=== PATIENT | female | born 1955 | race Caucasian/White ===

== ENCOUNTER → 2016-05-30 | Outpatient (CLI) | payer BC ==
--- NOTE | 2016-06-02 10:34 | MM ---
Reason for exam: additional evaluation requested from abnormal screening. Last mammogram was performed less than 1 month ago. History: Patient is postmenopausal and is nulliparous. Family history of breast cancer in mother at age 60. Benign ultrasound-guided core biopsy of the right breast, May 03, 2001. Benign excisional biopsy of the right breast, November 17, 2000. Took hormonal contraceptives for 15 years beginning at age 19. Physical Findings: Nurse did not find any significant physical abnormalities on exam. MG Work Up Mamm w CAD RT LM, CC with magnification, and LM with magnification view(s) were taken of the right breast. Prior study comparison: May 20, 2016, bilateral MG screening mammo w CAD. May 15, 2015, bilateral MG screening mammo w CAD. Finding #1: There is a 6 mm irregular mass in the 12 o'clock position of the right breast. Finding #2: There are segmental calcifications in the right breast. Density with calcifications. These results were verbally communicated with the patient and result sheet given to the patient on 05/30/16. ASSESSMENT: Suspicious, BI-RAD 4 RECOMMENDATION: Surgical consultation and stereotactic core biopsy of the right breast. Called Dr. Bustamante with mammographic findings and has scheduled an appointment for the patient for 06/06/16 at 10:[address] Stahl. PRELIMINARY REPORT CALLED AND FAXED TO DR. STAHL ON 06/02/16 AT 300/TP.
== END | disposition home or self-care (01) ==
LOC: RADMAMWWP 13:38
PROVIDERS: ATTEND Obstetrics & Gynecology
DX: R92.8 Other abnormal and inconclusive findings on diagnostic imaging of breast (principal)

== ENCOUNTER → 2016-06-26 | Day surgery (SDC) | payer BC ==
[~2016-06-26] MED LIST: BACITRACIN OINT 1 EACH PACKET TOPICAL ONE; LIDOCAINE 1% INJ 10MG/ML (20 ML MDV) ONE; SODIUM BICARB 4% 5 ML VIAL (0.48 MEQ/ML) ONE
--- NOTE | 2016-06-26 08:55 | PCN ---
DATE OF PROCEDURE: Patient is a 61-year-old white female who presents with a mammographic abnormality in the right breast. The patient was taken to the stereotactic unit where the area of concern was localized. The skin was cleaned and anesthetized using 1% lidocaine. Needle was then driven to the correct coordinates. Multiple core biopsies were obtained using the stereotactic device. Radiograph of the specimen revealed that the area of concern had been sampled. A marking clip was then left behind. Patient tolerated the procedure in stable condition. Please note: Specimen was sent to Pathology.
--- NOTE | 2016-06-26 10:16 | MM ---
EXAMINATION TYPE: MG stereo VAD BX RT DATE OF EXAM: 06/26/2016 8:54 AM COMPARISON: 05/20/2016 and 05/30/2016 CLINICAL HISTORY: 60-year-old female referred for stereotactic core needle biopsy for microcalcifications. TECHNIQUE: Stereotactic guided core biopsy of the 1:00 right breast. FINDINGS: The procedure of stereotactic guided core biopsy was explained to the patient. Benefits, alternatives, and risks were discussed. An informed consent was then obtained. [facility] was [facility]. Shortness pathway was CC from above approach. I performed the localization, then surgeon, Dr. Tylor Duran performed the remainder of the procedure. An 8 gauge vacuum assisted mammotome biopsy gun was used to obtain multiple core samples. The patient tolerated the procedure well without any immediate complication. The patient was kept in the radiology department for short stay after the procedure and then discharged home in stable condition. Targeted calcifications are identified in specimen mammogram. Post biopsy mammogram shows the clip to appear in satisfactory position relative to the targeted area of calcifications with a single residual calcification remaining at the site of biopsy. IMPRESSION: SUCCESSFUL, UNCOMPLICATED STEREOTACTIC GUIDED CORE BIOPSY OF THE 1:00 RIGHT BREAST MICROCALCIFICATIONS; FULL PATHOLOGY RESULTS TO FOLLOW. 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 SEE SURGICAL PATHOLOGY CANCER CASE SUMMARY AND COMMENT. Recommendation Surgical consult of the right breast. LELA
== END ==
LOC: RADMAMWWP 07:13
PROVIDERS: ATTEND Surgery
DX: C50.911 Malignant neoplasm of unspecified site of right female breast (principal); D05.11 Intraductal carcinoma in situ of right breast; N64.89 Other specified disorders of breast; R92.8 Other abnormal and inconclusive findings on diagnostic imaging of breast; Z88.2 Allergy status to sulfonamides
CPT/HCPCS: 88305; 88342; 88341; 19081; A4648; J2001

== ENCOUNTER → 2016-06-27 | Outpatient (CLI) | payer BC ==
[2016-06-27 08:22] LABS: ALT 44 U/L (9-52); AST 29 U/L (14-36); Alkaline Phosphatase 92 U/L (38-126); Anion Gap 10 mmol/L; Blood Urea Nitrogen 16 mg/dL (7-17); Calcium 10.9 mg/dL (8.4-10.2); Carbon Dioxide 30 mmol/L (22-30); Chloride 104 mmol/L (98-107); Cholesterol 181 mg/dL (<200); Glucose 106 mg/dL (74-99); HDL Cholesterol 59 mg/dL (40-60); Non-African American GFR(MDRD) >60 (>60 ml/min/1.73 sqM); Potassium 4.2 mmol/L (3.5-5.1); Sodium 144 mmol/L (137-145); Total Bilirubin 0.7 mg/dL (0.2-1.3); Total Protein 7.3 g/dL (6.3-8.2); Triglycerides 202 mg/dL (<150)
== END | disposition home or self-care (01) ==
LOC: LABWHC1 07:40
PROVIDERS: ATTEND Internal Medicine Interventional Cardiology
DX: E78.2 Mixed hyperlipidemia (principal)
CPT/HCPCS: 36415; 80053; 80061

== ENCOUNTER 2016-07-22 07:53 | Day surgery (SDC) | payer BC ==
[2016-07-18 11:12] VITALS: BMI 30.9
[~2016-07-22 07:53] MED LIST changes: +ALPRAZolam 0.25 MG TAB PO PRN; -BACITRACIN OINT 1 EACH PACKET TOPICAL ONE; +DEXAMETHASONE SOD PHOSPHATE 10 MG/ML 1 ML VIAL IV ONE; +HEPARIN SODIUM,PORCINE 5,000 UNIT/ML 1 ML VIAL SQ ONE; +HYDROmorphone 1 MG/ML 1 ML SYRINGE IVP PRN; +LACTATED RINGERS 1,000 ML IV SCH; +LIDOCAINE 1% 20 ML VIAL (10MG/ML) FOR IV START INTRADERMA PRN; -LIDOCAINE 1% INJ 10MG/ML (20 ML MDV) ONE; +MIDAZOLAM 2 MG/2 ML VIAL IV PRN; +ONDANSETRON 4 MG/2 ML VIAL IVP ONE; +Pre Op ABX Message 1 EACH MISC MISCELLANE ONE; +SCOPOLAMINE 1.5MG/72HR PATCH TRANSDERM ONE; -SODIUM BICARB 4% 5 ML VIAL (0.48 MEQ/ML) ONE
[2016-07-22] MEDS ORDERED: SODIUM BICARB 4% 5 ML VIAL (0.48 MEQ/ML) MISCELLANE ONE (09:32)
[2016-07-22] MEDS ORDERED: LIDOCAINE 1% INJ 10MG/ML (20 ML MDV) SQ ONE (09:32)
--- NOTE | 2016-07-22 10:14 | NM ---
EXAMINATION TYPE: NM sentinel node injection DATE OF EXAM: 07/22/2016 10:07 AM COMPARISON: Mammogram two June 2016 HISTORY: Right breast cancer TECHNIQUE AND FINDINGS: The procedure of sentinel lymph node injection was explained to the patient. The benefits, alternatives, and risks were discussed. An informed consent was then obtained. Overlying skin is cleaned with sterile alcohol. Lidocaine buffered with bicarbonate was used as anes thetic into the skin and subcutaneous tissue surrounding the nipple. Following this, 550 uCi Tc 99m Filtered Sulfur Colloid was injected into 4 equivalent doses at 12, 3, 6, and 9:00 position surroundi ng the right nipple intradermally. The injection sites were massaged by nuclear weapons custodian for 10 minutes after injection. T he patient tolerated the procedure well without any immediate complication. The patient was kept in the radiology department for short stay after the procedure and then taken to surgery for surgical pr ocedure what is presumed intraoperative gamma probe will be used for sentinel lymph node detection. IMPRESSION: Right breast radiotracer injection for sentinel node localization as above.
[2016-07-22] MEDS ORDERED: METHYLENE BLUE 50 MG/10 ML AMPUL MISCELLANE ONE (12:42)
[2016-07-22] MEDS ORDERED: LIDOCAINE 1% INJ 10MG/ML (20 ML MDV) ONE (12:53)
[2016-07-22] MEDS ORDERED: SUCCINYLCHOLINE CHLORIDE VIAL 200 MG/10 ML VIAL IV ONE (12:53)
[2016-07-22] MEDS ORDERED: ePHEDrine 50 MG/ML 1 ML AMP ONE (12:53)
[2016-07-22] MEDS ORDERED: MIDAZOLAM 2 MG/2 ML VIAL ONE (12:53)
[2016-07-22] MEDS ORDERED: PROPOFOL 10 MG/ML 20 ML VIAL IV ONE (12:53)
[2016-07-22] MEDS ORDERED: fentaNYL (PF) 50 MCG/ML 2 ML AMP ONE (12:53)
[2016-07-22] MEDS ORDERED: HEPARIN SODIUM,PORCINE 5,000 UNIT/ML 1 ML VIAL SQ ONE (12:55)
[2016-07-22] MEDS ORDERED: SODIUM CHLORIDE 0.9% 50 ML with ceFAZolin 2,000 MG IV ONE ×2 (13:17)
[2016-07-22] MEDS ORDERED: METHYLENE BLUE 50 MG/10 ML AMPUL ONE (13:33)
[2016-07-22] MEDS ORDERED: LACTATED RINGERS 1,000 ML IV ONE (13:38)
--- NOTE | 2016-07-22 15:18 | P.OP ---
Date of Procedure: 07/22/16 Preoperative Diagnosis: Right breast cancer Postoperative Diagnosis: Same Procedure(s) Performed: Lymphatic mapping with methylene blue, left breast lumpectomy insertion of Emely spacer, sentinel node biopsy Anesthesia: NEHEMIAS Surgeon: Allison Stahl Estimated Blood Loss (ml): 10 IV fluids (ml): 800 Pathology: other (Right breast tissue, sentinel lymph node 3) Condition: stable Disposition: PACU Indications for Procedure: core biopsy of the right breast positive for invasive cancer Operative Findings: Mammographic abnormality right breast, positive biopsy for cancer, sentinel lymph node 3 in the right axilla Description of Procedure: Patient is a 61-year-old white female who is status post core biopsy of the left concern noted radiographically in the right breast. Pathology positive for invasive carcinoma. Patient is chosen to undergo lumpectomy with sentinel node biopsy. Patient was taken to the operating room and following induction of general anesthesia the right breast was prepped in the periareolar area using alcohol. 5 mL of half-strength methylene blue were injected in the periareolar region. Following this the breast was massaged. The breast and axilla were then prepped and draped in sterile fashion. The area of the lumpectomy was addressed initially. An incision was made down to the hook of the needle and the surrounding tissue was excised. The specimen was interrogated using the margin probe and the lateral margin was positive. Therefore additional tissue was obtained from the lateral margin. Additionally the superficial was obtained as well as anteriorly including a specimen of skin and posterior to the pectoralis major muscle. Superior and inferior margins appeared to be well away from the lesion. The specimen was radiographed revealing the area of concern were contained within the specimen. The Emely device was placed into the cavity after the cavity had been reduced somewhat using a plastic technique. The sizing the cavity was approximately 8 x 4 cm. The balloon was inflated to 40 mL with saline. The superficial tissues were closed over this and the skin was closed using a 4-0 Monocryl followed by a a nylon suture. Following this instruments and gloves were changed and the area of the axilla was approached. Using the margin probe an area of increased activity was identified and an incision was made. This was carried down to the axillary contents and 3 radioactive blue lymph nodes were identified. The count on the first noted at 10 seconds was thoroughly 1994, second was 6061 and a common the third 37,000. Return 69. All of these were blue nodes as well. The background count at 10 seconds was then 14. The lymph nodes were sent for frozen section All instrument and sponge counts were correct at the end of the case. The patient tolerated the procedure in stable condition.
--- NOTE | 2016-07-22 15:20 | P.DS ---
Providers Attending physician: Allison Stahl Primary care physician: Stated None Plan - Discharge Summary New Discharge Prescriptions: Cephalexin [Keflex] 250 mg PO Q8HR #30 capsule HYDROcodone/APAP 5-325MG [Beals 5] 1 - 2 each PO Q4H PRN #20 tab PRN Reason: Pain Discharge Medication List Aspirin [Adult Low Dose Aspirin EC] 81 mg PO DAILY 07/18/16 [History] Latanoprost Ophth [Xalatan 0.005%] 1 drops BOTH EYES HS 07/18/16 [History] Losartan [Cozaar] 50 mg PO DAILY 07/18/16 [History] Vytorin(Dose Unknown) 1 tab PO HS 07/18/16 [History] Cephalexin [Keflex] 250 mg PO Q8HR #30 capsule 07/22/16 [Rx] HYDROcodone/APAP 5-325MG [Beals 5] 1 - 2 each PO Q4H PRN #20 tab 07/22/16 [Rx] Follow up Appointment(s)/Referral(s): Allison Stahl MD [STAFF PHYSICIAN] - 1 Week Activity/Diet/Wound Care/Special Instructions: Patient may shower after 48 hours Discharge Disposition: HOME SELF-CARE
[2016-07-22 15:29] VITALS: RESP 18; TEMP 97.6
--- NOTE | 2016-07-22 16:10 | MM ---
EXAMINATION TYPE: MG pre op needle loc RT, MG surgical specimen RT DATE OF EXAM: 07/22/2016 10:20 AM COMPARISON: NONE CLINICAL HISTORY: Breast cancer right breast TECHNIQUE: Needle localization with wire placement and surgical excision of area of concern in the right breast. FINDINGS: The procedure of needle localization with wire placement and than surgical excision was explained to the patient. Benefits, alternatives, and risks were discussed. An informed consent was then obtained. The shortest pathway for procedure was chosen. The overlying skin was prepped and draped in usual sterile fashion. Lidocaine buffered with bicarbonate was used as anesthetic into the skin and subcutaneous tissue up to the level of area of concern. 20-gauge needle was advanced using mammographic guidance. Subsequent 90 degrees mammogram show the needle to be in satisfactory position relative to the targeted area. At this point, wire was placed and the needle was withdrawn. The wire was fixed to patient's skin. Images were marked for surgeon. The patient tolerated the procedure well without any immediate complication. The patient was kept in the radiology department for short stay after the procedure and then taken to surgery for surgical excision. Targeted clip and wire are identified in specimen mammogram. The patient was kept in hospital for short stay after the procedure and then discharged home in stable condition. IMPRESSION: Successful, uncomplicated needle localization with wire placement and surgical excision of clip in the right breast, full pathology results to follow. Pathology Results: Malignant A. LYMPH NODE, SENTINEL #1, BIOPSY: LYMPH NODE NEGATIVE FOR METASTASIS. CYTOKERATIN 7 AND ENRIQUE IMMUNOHISTOCHEMICAL STAINS ARE CONFIRMATORY (CONTROLS APPROPRIATE). B. LYMPH NODE, SENTINEL #2, BIOPSY: LYMPH NODE NEGATIVE FOR METASTASIS. CYTOKERATIN 7 AND ENRIQUE IMMUNOHISTOCHEMICAL STAINS ARE CONFIRMATORY (CONTROLS APPROPRIATE). C. LYMPH NODE, SENTINEL #3, BIOPSY: LYMPH NODE NEGATIVE FOR METASTASIS. CYTOKERATIN 7 AND ENRIQUE IMMUNOHISTOCHEMICAL STAINS ARE CONFIRMATORY (CONTROLS APPROPRIATE). D-H. PENDING FIXATION. ADDENDUM REPORT D. BREAST, RIGHT, LUMPECTOMY: INVASIVE DUCTAL CARCINOMA WITH FOCAL PAPILLARY DIFFERENTIATION. MARGINS NEGATIVE FOR MALIGNANCY. SEE SURGICAL PATHOLOGY CANCER CASE SUMMARY AND COMMENT. E. BREAST, RIGHT, EXTERNAL SURFACE LATERAL, EXCISION: BENIGN BREAST WITH FIBROCYSTIC CHANGES INCLUDING FOCAL FIBROADENOMATOID HYPERPLASIA. F. BREAST, RIGHT, DEEP SURFACE OF DEEP POSTERIOR, EXCISION: BENIGN FIBROADIPOSE TISSUE. G. BREAST, RIGHT, EXTERNAL SURFACE OF MEDIAL, EXCISION: FIBROCYSTIC CHANGES, DUCT ECTASIA AND FOCAL OSSEOUS METAPLASIA. FOCAL ATYPICAL DUCTAL HYPERPLASIA. H. BREAST, RIGHT, NEW ANTERIOR MARGIN, EXCISION: BENIGN SKIN AND UNDERLYING BREAST TISSUE WITH FIBROCYSTIC CHANGES AND DUCT ECTASIA. Recommendation Surgical consult of the right breast. LELA
[2016-07-22] MEDS ORDERED: HYDROcodone/APAP 5-325MG 1 EACH TAB PO ONE (16:50)
[2016-07-22 17:48] VITALS: BP 133/73; PULSE 77
== END 2016-07-22 17:49 | disposition home or self-care (01) ==
LOC: OR 07:53
PROVIDERS: ATTEND Surgery
DX: C50.911 Malignant neoplasm of unspecified site of right female breast (principal); I10 Essential (primary) hypertension; E78.5 Hyperlipidemia, unspecified; Z79.1 Long term (current) use of non-steroidal anti-inflammatories (NSAID); Z79.82 Long term (current) use of aspirin; Z79.899 Other long term (current) drug therapy; Z88.2 Allergy status to sulfonamides
CPT/HCPCS: 19301; 38500; 88342; 88331; 88332; 88307; 88341; 76098; 19281; 38792; C1713; A9541; J2250; J0330; J2001; J3010; J0690; J2704

== ENCOUNTER → 2016-10-30 | Outpatient (CLI) | payer BC | END | disposition home or self-care (01) | LOC: LABWHC1 08:01 | PROVIDERS: ATTEND Internal Medicine Endocrinology, Diabetes & Metabolism | DX: C50.919 Malignant neoplasm of unspecified site of unspecified female breast (principal); E21.0 Primary hyperparathyroidism; E55.9 Vitamin D deficiency, unspecified; E83.52 Hypercalcemia | CPT/HCPCS: 36415; 83519 ==

== ENCOUNTER → 2017-02-02 | Outpatient (CLI) | payer BC ==
--- NOTE | 2017-02-02 11:58 | MM ---
Reason for exam: additional evaluation requested from prior study. Last mammogram was performed 8 months ago. History: Patient is postmenopausal, has history of breast cancer at age 61, and is nulliparous. Family history of breast cancer in mother at age 60. Malignant MG pre op needle loc RT of the right breast, July 22, 2016. Malignant MG stereo VAD BX RT of the right breast, June 26, 2016. Benign ultrasound-guided core biopsy of the right breast, May 03, 2001. Benign excisional biopsy of the right breast, November 17, 2000. Took hormonal contraceptives for 15 years beginning at age 19. Physical Findings: Nurse did not find any significant physical abnormalities on exam. MG Diagnostic Mammo w CAD JACIKE Bilateral CC and MLO view(s) were taken. Prior study comparison: May 30, 2016, right breast MG work up mamm w CAD RT. May 20, 2016, bilateral MG screening mammo w CAD. May 15, 2015, bilateral MG screening mammo w CAD. The breast tissue is heterogeneously dense. This may lower the sensitivity of mammography. No suspicious abnormality. Post therapy changes on the right breast. These results were verbally communicated with the patient and result sheet given to the patient on 02/02/17. ASSESSMENT: Benign, BI-RAD 2 RECOMMENDATION: Follow-up diagnostic mammogram of both breasts in 1 year.
== END | disposition home or self-care (01) ==
LOC: RADMAMWWP 10:02
PROVIDERS: ATTEND Radiology Radiation Oncology
DX: Z08 Encounter for follow-up examination after completed treatment for malignant neoplasm (principal); Z85.3 Personal history of malignant neoplasm of breast; Z17.0 Estrogen receptor positive status [ER+]

== ENCOUNTER → 2017-06-30 | Outpatient (CLI) | payer BC ==
[2017-06-30 11:19] LABS: ALT 35 U/L (9-52); AST 22 U/L (14-36); Albumin 4.2 g/dL (3.5-5.0); Alkaline Phosphatase 98 U/L (38-126); Anion Gap 10 mmol/L; Blood Urea Nitrogen 16 mg/dL (7-17); Calcium 10.8 mg/dL (8.4-10.2); Carbon Dioxide 29 mmol/L (22-30); Chloride 105 mmol/L (98-107); Cholesterol 144 mg/dL (<200); Glucose 98 mg/dL (74-99); HDL Cholesterol 52 mg/dL (40-60); LDL Cholesterol,Calculated 66 mg/dL (0-99); Potassium 4.1 mmol/L (3.5-5.1); Sodium 144 mmol/L (137-145); Total Bilirubin 0.6 mg/dL (0.2-1.3); Total Protein 6.8 g/dL (6.3-8.2); Triglycerides 128 mg/dL (<150)
== END | disposition home or self-care (01) ==
LOC: LABWHC1 08:19
PROVIDERS: ATTEND Internal Medicine Interventional Cardiology
DX: E78.2 Mixed hyperlipidemia (principal)
CPT/HCPCS: 36415; 80053; 80061

== ENCOUNTER → 2017-11-05 | Outpatient (CLI) | payer BC ==
--- NOTE | 2017-11-05 13:27 | BD ---
EXAMINATION TYPE: Axial Bone Density DATE OF EXAM: 11/05/2017 COMPARISON: 10.19.2015 CLINICAL HISTORY: 62 YR OLD FEMALE.....ICD-10 CODE: E21.1 SECONDARY OSTEOPOROSIS, HYPERPARATHYROIDI SM, Height: 63 Weight: 182 FRAX RISK QUESTIONS: Secondary Osteoporosis: YES 2. Hyperthyroidism: YES RISK FACTORS HISTORY OF: Active: YES Diet low in dairy products/other sources of calcium: NO Postmenopausal woman: YES, HYST AT 48, Hyperparathyroidism: YES MEDICATIONS: Additional Medications: ARIMIDEX, BP MEDS, VIT D, HX OF RADIATION, STATIN FOR CHOLESTEROL, Additional History: HX OF RT BREAST CANCER, 2017, HYPERTENSION, CHOLESTEROL, HYPERCALCEMIA, EXAM MEASUREMENTS: Bone mineral densitometry was performed using the [employer]. Bone mineral density as measured about the Lumbar spine is: ----- L1-L4(G/cm2): 1.233 T Score Values are as follows: ----- L1: -0.9 ----- L2: -1.4 ----- L3: 1.3 ----- L4: 2.3 ----- L1-L4: 0.4 Bone mineral density has: Increased 5.8% since study of: 10.19.2015 Bone mineral density about the R hip (g/cm2): 0.869 Bone mineral density about the L hip (g/cm2): 0.947 T Score values are as follows: -----R Neck: -1.2 -----L Neck: -1.1 -----R Total: -1.1 -----L Total: -0.5 Bone mineral density has: Decreased -7.4% since study of: 10.19.2015 Bone mineral density about the L Wrist (g/cm2): 0.655 T Score values are as follows: -----Dist. R+U: -0.3 -----Prox. R+U: 0.2 -----Radius total: 0.5 Bone mineral density FIRST TIME FOREARM HAS BEEN SCANNED.....BASELINE FOR FOREARM FRAX%s: THERE IS A 7.7% CHANCE OF A MAJOR OSTEOPOROTIC FX AND A 0.6% FOR HIP.....PROBABILITY OF FX IN 10 YRS TIME. IMPRESSION: Osteopenia (T Score between -2.5 and -1) at the femoral neck level in both hips. Bone density felt fa lsely elevated in lumbar spine due to reactive sclerosis as there is underlying scoliosis present. There is slightly increased risk of fracture and the patient may be considered for treatment. Re-Screen 2-5 years. NOTE: T-SCORE=SD OF THE YOUNG ADULT MEAN.
== END | disposition home or self-care (01) ==
LOC: RADBDWWP 09:20
PROVIDERS: ATTEND Internal Medicine Endocrinology, Diabetes & Metabolism
DX: Z79.811 Long term (current) use of aromatase inhibitors (principal); M85.851 Other specified disorders of bone density and structure, right thigh; M85.852 Other specified disorders of bone density and structure, left thigh; M85.88 Other specified disorders of bone density and structure, other site; M41.9 Scoliosis, unspecified; G95.89 Other specified diseases of spinal cord; E55.9 Vitamin D deficiency, unspecified; E21.1 Secondary hyperparathyroidism, not elsewhere classified
CPT/HCPCS: 77080; 77081

== ENCOUNTER → 2018-02-03 | Outpatient (CLI) | payer BC ==
--- NOTE | 2018-02-03 10:30 | MM ---
Reason for exam: additional evaluation requested from prior study. Last mammogram was performed 1 year ago. History: Patient is postmenopausal, has history of breast cancer at age 61, and is nulliparous. Family history of breast cancer in mother at age 60. Malignant MG pre op needle loc RT of the right breast, July 22, 2016. Malignant MG stereo VAD BX RT of the right breast, June 26, 2016. Benign ultrasound-guided core biopsy of the right breast, May 03, 2001. Benign excisional biopsy of the right breast, November 17, 2000. Took hormonal contraceptives for 15 years beginning at age 19. Physical Findings: Nurse did not find any significant physical abnormalities on exam. MG Diagnostic Mammo w CAD JACKIE Bilateral CC and MLO view(s) were taken. Prior study comparison: February 02, 2017, bilateral MG diagnostic mammo w CAD JACKIE. May 30, 2016, right breast MG work up mamm w CAD RT. The breast tissue is heterogeneously dense. This may lower the sensitivity of mammography. Post lumpectomy changes right breast. Stable chronic anterior asymmetric density right CC view. These results were verbally communicated with the patient and result sheet given to the patient on 02/03/18. ASSESSMENT: Benign, BI-RAD 2 RECOMMENDATION: Follow-up diagnostic mammogram of both breasts in 1 year.
== END | disposition home or self-care (01) ==
LOC: RADMAMWWP 08:47
PROVIDERS: ATTEND Radiology Radiation Oncology
DX: C50.411 Malignant neoplasm of upper-outer quadrant of right female breast (principal); Z92.3 Personal history of irradiation; Z17.0 Estrogen receptor positive status [ER+]; Z79.811 Long term (current) use of aromatase inhibitors
CPT/HCPCS: 77066

== ENCOUNTER → 2018-06-28 | Outpatient (CLI) | payer BC ==
[2018-06-28 16:54] LABS: Parathyroid Hormone Intact 106.4 pg/mL (14.0-72.0)
[2018-06-28 19:19] LABS: Albumin 4.3 g/dL (3.80-4.90); Albumin/Globulin Ratio 2.15 (1.60-3.17); Anion Gap 9.7 mmol/L (4.00-12.00); Calcium 10.4 mg/dL (8.7-10.3); Carbon Dioxide 27.3 mmol/L (21.6-31.8); LDL Cholesterol,Calculated 88.8 mg/dL (0.0-131.0); Potassium 3.8 mmol/L (3.5-5.5); Total Bilirubin 0.6 mg/dL (0.2-1.2); Total Protein 6.3 g/dL (6.2-8.2); VLDL Calculation 30.2 mg/dL (5.00-40.00)
== END | disposition home or self-care (01) ==
LOC: LABWHC1 08:25
PROVIDERS: ATTEND Internal Medicine Interventional Cardiology
DX: E78.2 Mixed hyperlipidemia (principal); E06.3 Autoimmune thyroiditis; E55.9 Vitamin D deficiency, unspecified; E21.1 Secondary hyperparathyroidism, not elsewhere classified
CPT/HCPCS: 36415; 80053; 80061; 82306; 83970

== ENCOUNTER → 2018-09-16 | Outpatient (CLI) | payer BC ==
[2018-09-16 15:58] LABS: Vitamin D 25 Hydroxy 59.2 ng/mL (30.0-100.0)
[2018-09-16 16:07] LABS: Albumin 4.5 g/dL (3.80-4.90); Calcium 10.6 mg/dL (8.7-10.3)
[2018-09-16 16:44] LABS: Parathyroid Hormone Intact 125.6 pg/mL (14.0-72.0)
== END | disposition home or self-care (01) ==
LOC: LABWHC1 11:06
PROVIDERS: ATTEND Internal Medicine Endocrinology, Diabetes & Metabolism
DX: E21.1 Secondary hyperparathyroidism, not elsewhere classified (principal); E55.9 Vitamin D deficiency, unspecified; Z13.820 Encounter for screening for osteoporosis
CPT/HCPCS: 36415; 82040; 82306; 82310; 82565; 82652; 83970; 84075; 84439; 84443

== ENCOUNTER → 2018-09-30 | Outpatient (CLI) | payer BC ==
--- NOTE | 2018-10-01 08:33 | NM ---
EXAMINATION TYPE: NM parathyroid w/spect DATE OF EXAM: 09/30/2018 COMPARISON: NONE HISTORY: Elevated calcium and parathyroid hormone levels. Autoimmune thyroiditis TECHNIQUE: Following administration of 25.4 mCi Tc99m Sestamibi. Anterior projection images of the neck and ches t were obtained 10 minutes and 3 hours post injection. SPECT images of the neck and chest were obtai dia and reconstructed in three axes. FINDINGS: Thyroid tracer washout: Delayed images demonstrate near-complete tracer washout from the thyroid. Parathyroid uptake: There is faint uptake seen within the thyroid bed bilaterally greater on the left . Would recommend ultrasound to assess for parathyroid adenoma. Normal uptake: There is physiological tracer uptake in the myocardium, liver, salivary glands, and th yroid gland. IMPRESSION: Faint uptake seen on delayed imaging within the thyroid bed bilaterally. Greater on the left. Recomme nd ultrasound to assess for parathyroid nodule.
== END ==
LOC: RADNMMAIN 11:14
PROVIDERS: ATTEND Internal Medicine Endocrinology, Diabetes & Metabolism
DX: R93.89 Abnormal findings on diagnostic imaging of other specified body structures (principal); E06.3 Autoimmune thyroiditis; E21.1 Secondary hyperparathyroidism, not elsewhere classified; E55.9 Vitamin D deficiency, unspecified; I10 Essential (primary) hypertension
CPT/HCPCS: 78071; A9500

== ENCOUNTER → 2018-10-07 | Outpatient (CLI) | payer BC ==
--- NOTE | 2018-10-07 22:55 | MR ---
EXAMINATION TYPE: MR cspine/tspine/lspine wo/w DATE OF EXAM: 10/07/2018 COMPARISON: NONE HISTORY: Back pain, Unsteady gait TECHNIQUE: Multiplanar, multisequence imaging of the cervical, thoracic, and lumbar spine are all per formed without and with IV contrast, the patient is injected with 7.5 cc of gadolinium this for the s tudy FINDINGS: C-SPINE: FINDINGS: Sagittal images of the cervical spine show the craniocervical junction to appear within nor mal limits. The cervical and upper thoracic spinal cord is normal in course, caliber, and signal. V ertebral alignment is anatomic. The vertebral body and disc space heights are normal. Small posterio r disc herniations seen at C4-C5 and C5-C6 level on sagittal images effacing anterior thecal sac. Het erogeneous Modic type II endplate changes C6-C7 level with mild to moderate spurring. No suspicious e nhancement. Axial images show the C2-C3 and C3-C4 levels to appear within normal limits. Axial images at the C4-C5 level showed broad base left paracentral disc protrusion effacing the anter olateral thecal sac and causing moderate to advanced left-sided neural foraminal narrowing. Axial images at C5-C6 level showed broad based central disc protrusion effacing anterior thecal sac w ith left foraminal disc protrusion component causing moderate to advanced left-sided neural foraminal narrowing. Axial images at C6-C7 and C7-T1 levels are felt within normal limits. IMPRESSION: Degenerative changes in the mid cervical spine as detailed above. T-SPINE: Spinal cord shows focal compression due to round well-circumscribed homogeneous enhancing intradural extra medullary 1.6 x 1.2 cm lesion in sagittal image 8. Remainder cord shows normal caliber and sign al. Vertebral body heights and alignment are satisfactory. Disc space heights are fairly well maintained . A large posterior disc herniation is present on sagittal images. Some heterogeneity bone marrow sig nal intensity. No suspicious enhancement noted. Review of axial images show left paracentral disc protrusion mildly effacing anterolateral thecal sac at T1-T2 level on axial image 18. Axial images at T2-T3 level show large heterogeneous enhancing right anterolateral lesion occupying 9 0% of spinal canal compressing spinal cord measuring 1.2 cm AP by 1.4 cm transversely axial image 14. No bony destruction is evident. No neural foraminal extension is seen. Remainder axial images show n o significant spinal canal effacement or disc herniation or neural foraminal narrowing. There is begi nning scoliotic curvature in the upper lumbar spine noted. IMPRESSION: There is 1.6 cm enhancing intradural extra medullary mass causing significant mass effect on spinal cord felt to reflect neoplasm favored meningioma or schwannoma. Shortly after exam was com pleted, ordering physician office made aware of findings by manufacturing engineering technologist after discussion with ra diologist. L-SPINE: FINDINGS: There is spectral convex scoliosis centered at L1-L2 level. Sagittal images of the lumbar s pine show vertebral body heights to appear satisfactory. Multilevel disc desiccation is present with mild multilevel disc space narrowing. The conus medullaris is normal in position and signal ending m id L1 level. The bone marrow signal intensity is overall heterogeneous. Axial images at T12-L1 level show left paracentral disc protrusion mildly effacing anterolateral thec al sac, bilateral neural foramina are patent. Axial images at the L1-L2 level show left-sided facet arthropathy effaces the anterolateral thecal sa c and left paracentral disc protrusion effacing the anterolateral thecal sac and causing moderate lef t-sided neural foraminal narrowing. Axial images at the L2-L3 level show mild/moderate facet degenerative changes bilaterally effacing po sterior lateral thecal sac. Left-sided neural foramina shows mild narrowing due to disc herniation. Axial images at L3-L4 level show [id number] right greater than left facet degenerative changes bilaterally. There is mild broad disc bulge effacing right paracentral spinal canal. There is mild ri ght greater than left bilateral neural foraminal narrowing. Axial images at the L4-L5 level show mild/moderate right greater than left facet degenerative changes . There is central disc protrusion mildly effacing anterior thecal sac. There is mild right anterior inferior neural foraminal narrowing. Axial images at the L5-S1 level are felt within normal limits on axial image 2. There is partial visualization of oval T2 hyperintense lesion right kidney on image 29 favoring simpl e cyst. IMPRESSION: Marked scoliosis with multilevel degenerative changes in lumbar spine as detailed above.
== END | disposition home or self-care (01) ==
LOC: RADMRIMAIN 14:38
PROVIDERS: ATTEND Orthopaedic Surgery Orthopaedic Surgery of the Spine
DX: M48.02 Spinal stenosis, cervical region (principal); M48.061 Spinal stenosis, lumbar region without neurogenic claudication; M50.221 Other cervical disc displacement at C4-C5 level; M51.26 Other intervertebral disc displacement, lumbar region; M47.892 Other spondylosis, cervical region; M47.896 Other spondylosis, lumbar region; M41.86 Other forms of scoliosis, lumbar region; G95.29 Other cord compression; M46.96 Unspecified inflammatory spondylopathy, lumbar region; G95.89 Other specified diseases of spinal cord
CPT/HCPCS: 72156; 72157; 72158; A9585

== ENCOUNTER → 2018-10-22 | Outpatient (CLI) | payer BC ==
[2018-10-22 16:04] LABS: Amorphous Sediment,Urine Moderate /hpf; Appearance,Urine Turbid (Clear); Basophils % (A) 1 %; Bilirubin,Urine Negative (Negative); Blood,Urine Negative (Negative); Color,Urine Light Yellow; Eosinophils # (A) 0.1 k/uL (0-0.7); Eosinophils % (A) 2 %; Glucose,Urine (UA) Negative (Negative); HGB 12.8 gm/dL (11.4-16.0); Ketones,Urine Negative (Negative); Leukocyte Esterase,Urine Negative (Negative); Lymphocytes % (A) 36 %; MCHC 31.9 g/dL (31.0-37.0); MCV 84.7 fL (80.0-100.0); Monocytes # (A) 0.4 k/uL (0-1.0); Monocytes % (A) 7 %; Mucus,Urine Rare /hpf; Neutrophils # (A) 2.9 k/uL (1.3-7.7); Neutrophils % (A) 52 %; Nitrite,Urine Negative (Negative); Platelet Count 191 k/uL (150-450); Protein,Urine Negative (Negative); RBC 4.72 m/uL (3.80-5.40); RDW 13.8 % (11.5-15.5); Specific Gravity,Urine 1.016 (1.001-1.035); Squamous Epithelial Cell,Urine 1 /hpf (0-4); Urobilinogen,Urine <2.0 mg/dL (<2.0); WBC 5.6 k/uL (3.8-10.6)
[2018-10-22 16:12] LABS: INR 0.9 (<1.2); Partial Thromboplastin Time 23.2 sec (22.0-30.0); Prothrombin Time 9.8 sec (9.0-12.0)
[2018-10-22 23:50] LABS: Albumin 4.4 g/dL (3.80-4.90); Albumin/Globulin Ratio 2.32 (1.60-3.17); Anion Gap 7.9 mmol/L (4.00-12.00); Calcium 10.6 mg/dL (8.7-10.3); Carbon Dioxide 28.1 mmol/L (21.6-31.8); Globulin 1.9 g/dL (1.6-3.3); Total Bilirubin 0.4 mg/dL (0.2-1.2); Total Protein 6.3 g/dL (6.2-8.2)
== END | disposition home or self-care (01) ==
LOC: LABWHC1 14:51
PROVIDERS: ATTEND Neurological Surgery
DX: Z01.818 Encounter for other preprocedural examination (principal); Z01.812 Encounter for preprocedural laboratory examination
CPT/HCPCS: 36415; 80053; 81001; 85025; 85610; 85730; 93005

== ENCOUNTER → 2018-10-22 | Outpatient (CLI) | payer BC ==
--- NOTE | 2018-10-22 15:34 | US ---
EXAMINATION TYPE: US thyroid st tissue head/neck DATE OF EXAM: 10/22/2018 COMPARISON: Nuc med parathyroid scan September 30, 2018. MRI cervical spine October 07, 2018 CLINICAL HISTORY: E21.0 Primary hyperparathyroidism. GLAND SIZE: Right Lobe: 4.9 x 1.3 x 1.5 cm Overall Parenchyma: homogenous Left Lobe: 5.0 x 1.5 x 1.4cm cm Overall Parenchyma: homogeneous Isthmus Thickness: 0.4 cm NODULES RIGHT: # of nodules measured on right: 0 LEFT: # of nodules measured on left: 0 ISTHMUS: # of nodules measured in the isthmus: 0 Subcentimeter cysts seen bilaterally in thyroid Bilateral neck scanned, no evidence of lymphadenopathy. Thyroid gland is normal in size and fairly homogeneous in appearance with scattered small nodules chris ntified bilaterally. No definitive suspicious extra thyroid nodules when correlating with recent MRI and nuclear medicine study are felt present, technologist patel a 8 x 10 mm hypoechoic area inferior to the right thyroid which could reflect partial visualization of proximal esophagus based on correla tion which is not suspicious especially parathyroid nuclear study. IMPRESSION: As above.
== END | disposition home or self-care (01) ==
LOC: RADUSWWP 14:45
PROVIDERS: ATTEND Internal Medicine Endocrinology, Diabetes & Metabolism
DX: E04.2 Nontoxic multinodular goiter (principal); E21.0 Primary hyperparathyroidism; E55.9 Vitamin D deficiency, unspecified; E83.52 Hypercalcemia; I10 Essential (primary) hypertension; M85.80 Other specified disorders of bone density and structure, unspecified site; E66.8 Other obesity
CPT/HCPCS: 76536

== ENCOUNTER → 2018-12-06 | Outpatient (CLI) | payer BC ==
--- NOTE | 2018-12-06 16:09 | XR ---
Thoracic spine HISTORY: Status post T2-3 laminectomy 3 views of the thoracic spine Correlation to MR thoracic spine 10/07/2018 Patient is status post posterior fusion at T2-3, there are been laminectomies performed. Bone mineral ization is reduced. There is a spinal curvature in the thoracic spine. Degenerative disc changes are present in the upper lumbar spine, visualized cervical spine and portions of the thoracic spine. Thor acic vertebral bodies show preserved height. Bone mineralization is reduced. IMPRESSION: Postop findings, degenerative disc changes and spinal curvature.
== END | disposition home or self-care (01) ==
LOC: RADXRMAIN 13:31
PROVIDERS: ATTEND Neurological Surgery
DX: M47.814 Spondylosis without myelopathy or radiculopathy, thoracic region (principal); Z47.89 Encounter for other orthopedic aftercare
CPT/HCPCS: 72072

== ENCOUNTER → 2019-01-11 | Outpatient (CLI) | payer BC ==
[2019-01-11 20:19] LABS: African American GFR (CKD) 90.3 (60.0-200.0); Albumin 4.6 g/dL (3.80-4.90); Calcium 10.8 mg/dL (8.7-10.3); Non-African American GFR(CKD) 77.9 (60.0-200.0)
[2019-01-11 20:20] LABS: Vitamin D 25 Hydroxy 35.7 ng/mL (30.0-100.0)
== END ==
LOC: LABWHC1 12:45
PROVIDERS: ATTEND Internal Medicine Endocrinology, Diabetes & Metabolism
DX: E06.3 Autoimmune thyroiditis (principal); E21.1 Secondary hyperparathyroidism, not elsewhere classified; E55.9 Vitamin D deficiency, unspecified; E83.52 Hypercalcemia
CPT/HCPCS: 36415; 82040; 82306; 82310; 82565; 83970

== ENCOUNTER → 2019-02-04 | Outpatient (CLI) | payer BC ==
--- NOTE | 2019-02-04 16:08 | XR ---
Thoracic spine HISTORY: Spondylosis with myelopathy 2 views of the thoracic spine on 3 images correlated prior exam 12/06/2018 There is no significant interval change. S-shaped thoracic lumbar scoliosis is present. Postop change s are noted at the upper thoracic spine and are stable status post posterior fusion at T2-3, there ar e associated laminectomies. Cervical spondylosis, thoracic spondylosis changes are present. Thoracic vertebral bodies show preserved height, bone mineralization is reduced. Vacuum phenomenon present at T12-L1. impression: Stable exam.
== END | disposition home or self-care (01) ==
LOC: LABWHC1 09:40
PROVIDERS: ATTEND Neurological Surgery
DX: M47.14 Other spondylosis with myelopathy, thoracic region (principal)
CPT/HCPCS: 72070

== ENCOUNTER → 2019-02-04 | Outpatient (CLI) | payer BC ==
--- NOTE | 2019-02-04 10:44 | MM ---
Reason for exam: additional evaluation requested from prior study. Last mammogram was performed 1 year ago. History: Patient is postmenopausal, has history of breast cancer at age 61, and is nulliparous. Family history of breast cancer in mother at age 60. Malignant MG pre op needle loc RT of the right breast, July 22, 2016. Malignant MG stereo VAD BX RT of the right breast, June 26, 2016. Radiation therapy of the right breast, 2017. Benign ultrasound-guided core biopsy of the right breast, May 03, 2001. Benign excisional biopsy of the right breast, November 17, 2000. Took hormonal contraceptives for 15 years beginning at age 19. Took antineoplastic for 2 years beginning at age 61. Physical Findings: Nurse did not find any significant physical abnormalities on exam. MG 3D Diag Mammo W/Cad JACKIE Bilateral CC and MLO view(s) were taken. Prior study comparison: February 03, 2018, bilateral MG diagnostic mammo w CAD JACKIE. February 02, 2017, bilateral MG diagnostic mammo w CAD JACKIE. The breast tissue is heterogeneously dense. This may lower the sensitivity of mammography. Benign appearing bilateral calcifications. Right breast post therapy change. These results were verbally communicated with the patient and result sheet given to the patient on 02/04/19. ASSESSMENT: Benign, BI-RAD 2 RECOMMENDATION: Follow-up diagnostic mammogram of both breasts in 1 year.
== END | disposition home or self-care (01) ==
LOC: RADMAMWWP 09:34
PROVIDERS: ATTEND Internal Medicine Hematology & Oncology
DX: Z08 Encounter for follow-up examination after completed treatment for malignant neoplasm (principal); Z85.3 Personal history of malignant neoplasm of breast
CPT/HCPCS: 77062; 77066

== ENCOUNTER → 2019-03-17 | Outpatient (CLI) | payer BC ==
[2019-03-17 20:29] LABS: African American GFR (CKD) 68.9 (60.0-200.0); Albumin 4.6 g/dL (3.80-4.90); Calcium 10.7 mg/dL (8.7-10.3)
== END | disposition home or self-care (01) ==
LOC: LABWHC1 12:03
PROVIDERS: ATTEND Internal Medicine Endocrinology, Diabetes & Metabolism
DX: E06.3 Autoimmune thyroiditis (principal); E21.1 Secondary hyperparathyroidism, not elsewhere classified; E55.9 Vitamin D deficiency, unspecified; E83.52 Hypercalcemia
CPT/HCPCS: 36415; 82040; 82306; 82310; 82565; 83970

== ENCOUNTER → 2019-05-09 | Outpatient (CLI) | payer BC ==
--- NOTE | 2019-05-09 12:39 | XR ---
Thoracic spine HISTORY: Z 98.890, history spinal tumor, posterior spinal fusion 3 views of the thoracic spine submitted and correlated prior x-ray dated 02/04/2019 Posterior spinal fusion changes at the upper thoracic spine T2-3 with associated laminectomies are ag ain noted. Question some slight lateral displacement of the right-sided screw at the T3 level althoug h there is a scoliotic curvature present. CT scan could be performed for better evaluation of screw t ip placement. Scoliotic curvature is again noted, there are degenerative disc changes. Vertebral bodi es show preserved height, stable bone mineralization. Degenerative disc changes also noted in the cer vical spine. IMPRESSION: Postop changes as described. Question somewhat lateral displacement of the right-sided sc rew at the T3 level. Degenerative disc disease and additional findings above.
== END | disposition home or self-care (01) ==
LOC: RADXRMAIN 09:29
PROVIDERS: ATTEND Neurological Surgery
DX: M51.34 Other intervertebral disc degeneration, thoracic region (principal); M41.84 Other forms of scoliosis, thoracic region; Z98.1 Arthrodesis status; Z98.890 Other specified postprocedural states
CPT/HCPCS: 72070

== ENCOUNTER → 2019-07-27 | Outpatient (CLI) | payer MEDICARE ==
[2019-07-28 02:35] LABS: African American GFR (CKD) 54.9 (60.0-200.0); Albumin 4.3 g/dL (3.80-4.90); Calcium 9.7 mg/dL (8.7-10.3); Non-African American GFR(CKD) 47.4 (60.0-200.0)
[2019-07-28 02:43] LABS: T4, Free (Free Thyroxine) 1.2 ng/dL (0.80-1.80)
== END | disposition home or self-care (01) ==
LOC: LABWHC1 15:17
PROVIDERS: ATTEND Internal Medicine Endocrinology, Diabetes & Metabolism
DX: I10 Essential (primary) hypertension (principal); E21.0 Primary hyperparathyroidism; E83.52 Hypercalcemia; M85.80 Other specified disorders of bone density and structure, unspecified site; E66.8 Other obesity; E55.9 Vitamin D deficiency, unspecified
CPT/HCPCS: 36415; 82040; 82306; 82310; 82565; 83970; 84439; 84443; 84520

== ENCOUNTER → 2019-08-08 | Outpatient (CLI) | payer MEDICARE | END | disposition home or self-care (01) | CPT/HCPCS: 36415; 80048; 83970 ==

== ENCOUNTER → 2019-11-22 | Outpatient (CLI) | payer MEDICARE ==
--- NOTE | 2019-11-22 13:37 | MR ---
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 Pre and postcontrast enhanced imaging was performed. Disc spaces: Mild scattered decreased signal and loss of height and noted throughout the thoracic spi ne compatible with degenerative disc disease. No disc herniation or protrusion. Mild ventral spondylo sis. Spinal canal: Previously noted extra medullary lesion at the T2-3 level has been excised. Pedicular s crews are in place at this time. There is no evidence for residual mass or pathologic enhancement at this site. No new lesions are seen. Thoracic spinal cord: Thoracic spinal cord is of normal caliber and signal. Paraspinal soft tissues: No evidence for paraspinal mass. No destructive lesions seen. Vertebral segments: No evidence for fracture or bony lesion. IMPRESSION: 1.Previously noted extra medullary lesion at the T2-3 level has been excised. Pedicular screws are in place at this time. There is no evidence for residual mass or pathologic enhancement at this site. N o new lesions are seen
== END | disposition home or self-care (01) ==
LOC: RADMRIMAIN 11:04
DX: D16.6 Benign neoplasm of vertebral column (principal)
CPT/HCPCS: 72157; A9585

== ENCOUNTER → 2020-01-19 | Outpatient (CLI) | payer MEDICARE ==
[2020-01-19 17:04] LABS: African American GFR (CKD) 77.8 (60.0-200.0); Albumin 4.4 g/dL (3.80-4.90); Calcium 9.6 mg/dL (8.7-10.3); Non-African American GFR(CKD) 67.1 (60.0-200.0)
== END | disposition home or self-care (01) ==
LOC: LABWHC1 09:42
PROVIDERS: ATTEND Internal Medicine Endocrinology, Diabetes & Metabolism
DX: E07.9 Disorder of thyroid, unspecified (principal); E21.0 Primary hyperparathyroidism; E55.9 Vitamin D deficiency, unspecified
CPT/HCPCS: 36415; 82040; 82306; 82310; 82565; 83970; 84439; 84443; 84520

== ENCOUNTER → 2020-02-07 | Outpatient (CLI) | payer MEDICARE ==
--- NOTE | 2020-02-07 12:53 | MM ---
Reason for exam: additional evaluation requested from prior study. Last mammogram was performed 1 year ago. History: Patient is postmenopausal, has history of breast cancer at age 61, and is nulliparous. Family history of breast cancer in mother at age 60. Malignant MG pre op needle loc RT of the right breast, July 22, 2016. Malignant MG stereo VAD BX RT of the right breast, June 26, 2016. Lumpectomy of the right breast, 2016. Radiation therapy of the right breast, 2016. Benign ultrasound-guided core biopsy of the right breast, May 03, 2001. Benign excisional biopsy of the right breast, November 17, 2000. Took hormonal contraceptives for 15 years beginning at age 19. Took antineoplastic for 3 months. Physical Findings: Nurse did not find any significant physical abnormalities on exam. MG 3D Diag Mammo W/Cad JACKIE Bilateral CC and MLO view(s) were taken. Prior study comparison: February 04, 2019, bilateral MG 3d diag mammo w/cad JACKIE. February 03, 2018, bilateral MG diagnostic mammo w CAD JACKIE. The breast tissue is heterogeneously dense. This may lower the sensitivity of mammography. Stable 12 o'clock low density 24cm circumscribed mass probable chronic post operative seroma. Unchanged oil cyst calcifications on the left. No significant new findings when compared with previous films. These results were verbally communicated with the patient and result sheet given to the patient on 02/07/20. ASSESSMENT: Benign, BI-RAD 2 RECOMMENDATION: Follow-up diagnostic mammogram of both breasts in 1 year.
== END | disposition home or self-care (01) ==
LOC: RADMAMWWP 08:45
PROVIDERS: ATTEND Radiology Radiation Oncology
DX: C50.411 Malignant neoplasm of upper-outer quadrant of right female breast (principal); Z92.3 Personal history of irradiation; Z79.811 Long term (current) use of aromatase inhibitors; Z71.0 Person encountering health services to consult on behalf of another person
CPT/HCPCS: 77066; G0279; 77062

== ENCOUNTER → 2020-07-03 | Outpatient (CLI) | payer MEDICARE ==
[2020-07-03 15:46] LABS: African American GFR (CKD) 60.6 (60.0-200.0); Albumin 4.8 g/dL (3.80-4.90); Anion Gap 5.6 mmol/L (4.00-12.00); BUN/Creat Ratio 20.91 Ratio (12.00-20.00); Calcium 9.7 mg/dL (8.7-10.3); Carbon Dioxide 30.4 mmol/L (21.6-31.8); Chol/HDL Ratio 3.06; Globulin 1.6 g/dL (1.6-3.3); LDL Cholesterol,Calculated 87.4 mg/dL (0.0-131.0); Non-African American GFR(CKD) 52.3 (60.0-200.0); Potassium 4.5 mmol/L (3.5-5.5); Total Bilirubin 0.5 mg/dL (0.2-1.2); Total Protein 6.4 g/dL (6.2-8.2); VLDL Calculation 21.6 mg/dL (5.00-40.00)
== END | disposition home or self-care (01) ==
LOC: LABWHC1 09:08
PROVIDERS: ATTEND Nurse Practitioner Adult Health
DX: E78.2 Mixed hyperlipidemia (principal); I10 Essential (primary) hypertension
CPT/HCPCS: 36415; 80053; 80061

== ENCOUNTER → 2020-12-06 | Outpatient (CLI) | payer MEDICARE ==
--- NOTE | 2020-12-06 12:15 | BD ---
EXAMINATION TYPE: Axial Bone Density DATE OF EXAM: 12/06/2020 COMPARISON: 11.05.2017 CLINICAL HISTORY: 65 YR OLD FEMALE.....ICD-10 CODE: Z79.890 POST MENOPAUSAL Height: 62.4 Weight: 184 FRAX RISK QUESTIONS: SECONDARY OSTEOPOROSIS DUE TO HYPERPARATHYROIDISM RISK FACTORS HISTORY OF: Surgery to Spine T2 AND T3 METAL BRACE, AFTER TUMOR REMOVED FROM SPINAL CORD Postmenopausal woman: YES, AT AGE 48 HYST Hyperparathyroidism: YES, 2019, REMOVAL OF PARATHYROID GLAND, Adrenal Insufficiency: NO MEDICATIONS: Additional Medications: BP MEDS, HX OF RADIATION FOR BREAST CANCER, STATIN FOR CHOLESTEROL, VIT D Additional History: HYPERTENSION, HX OF BREAST CANCER, CHOLESTEROL, EXAM MEASUREMENTS: Bone mineral densitometry was performed using the PolyServe System. Bone mineral density as measured about the Lumbar spine is: ----- L1-L4(G/cm2): 1.099 T Score Values are as follows: ----- L1: -0.6 ----- L2: -2.4 ----- L3: -1.3 ----- L4: 0.8 ----- L1-L4: -0.7 Bone mineral density has: Decreased -14.4% since study of: 11.05.2017 Bone mineral density about the R hip (g/cm2): 0.830 Bone mineral density about the L hip (g/cm2): 0.951 T Score values are as follows: -----R Neck: -2.0 -----L Neck: -1.5 -----R Total: -1.4 -----L Total: -0.4 Bone mineral density has: Decreased -1.9% since study of: 11.05.2017 FRAX%s: THERE IS A 10.5% CHANCE FOR A MAJOR OSTEOPOROTIC FX AND A 1.6% FOR HIP.....PROBABILITY FOR FX IN 10 YRS TIME IMPRESSION: Osteopenia. NOTE: T-SCORE=SD OF THE YOUNG ADULT MEAN.
== END | disposition home or self-care (01) ==
LOC: RADBDWWP 10:26
PROVIDERS: ATTEND Internal Medicine Hematology & Oncology
DX: M85.89 Other specified disorders of bone density and structure, multiple sites (principal)
CPT/HCPCS: 77080

== ENCOUNTER → 2021-02-07 | Outpatient (CLI) | payer MEDICARE ==
--- NOTE | 2021-02-07 12:18 | MM ---
Reason for exam: additional evaluation requested from prior study. Last mammogram was performed 1 year ago. History: Patient is postmenopausal, has history of breast cancer at age 61, and is nulliparous. Family history of breast cancer in mother at age 60. Malignant MG pre op needle loc RT of the right breast, July 22, 2016. Malignant MG stereo VAD BX RT of the right breast, June 26, 2016. Lumpectomy of the right breast, 2016. Radiation therapy of the right breast, 2016. Benign ultrasound-guided core biopsy of the right breast, May 03, 2001. Benign excisional biopsy of the right breast, November 17, 2000. Took hormonal contraceptives for 15 years beginning at age 19. Took antineoplastic for 3 months. Physical Findings: Nurse did not find any significant physical abnormalities on exam. MG 3D Diag Mammo W/Cad JACKIE Bilateral CC and MLO view(s) were taken. Prior study comparison: February 07, 2020, bilateral MG 3d diag mammo w/cad JACKIE. February 04, 2019, bilateral MG 3d diag mammo w/cad JACKIE. The breast tissue is heterogeneously dense. This may lower the sensitivity of mammography. Post surgical and post therapy change right breast. 2.7cm isodense circumscribed mass versus 2.4cm previously at 1 o'clock surgical site likely seroma. No significant new findings when compared with previous films. These results were verbally communicated with the patient and result sheet given to the patient on 02/07/21. ASSESSMENT: Incomplete: need additional imaging evaluation, BI-RAD 0 RECOMMENDATION: Ultrasound of the right breast. (superior half)
--- NOTE | 2021-02-07 12:20 | USB ---
Reason for exam: additional evaluation requested from abnormal screening. History: Patient is postmenopausal, has history of breast cancer at age 61, and is nulliparous. Family history of breast cancer in mother at age 60. Malignant MG pre op needle loc RT of the right breast, July 22, 2016. Malignant MG stereo VAD BX RT of the right breast, June 26, 2016. Lumpectomy of the right breast, 2017. Radiation therapy of the right breast, 2017. Benign ultrasound-guided core biopsy of the right breast, May 03, 2001. Benign excisional biopsy of the right breast, November 17, 2000. Took hormonal contraceptives for 15 years beginning at age 19. Took antineoplastic for 3 months. US Breast Limited RT Technologist: Tamika Apple Right limited breast ultrasound including focal area of concern, retroareolar and axilla demonstrates a 2.1 x 2.6 x 1.4cm cystic lesion at 12 o'clock, complex, internal echoes, thick walled, compatible with a seroma. Scanned 9-3 o'clock. These results were verbally communicated with the patient and result sheet given to the patient on 02/07/21. ASSESSMENT: Benign, BI-RAD 2 RECOMMENDATION: Follow-up diagnostic mammogram of both breasts in 1 year.
== END | disposition home or self-care (01) ==
LOC: RADMAMWWP 10:49
PROVIDERS: ATTEND Radiology Radiation Oncology
DX: N64.89 Other specified disorders of breast (principal); Z78.0 Asymptomatic menopausal state; Z85.3 Personal history of malignant neoplasm of breast; Z80.3 Family history of malignant neoplasm of breast; Z79.3 Long term (current) use of hormonal contraceptives
CPT/HCPCS: 77066; 76642; G0279; 77062

== ENCOUNTER → 2021-07-03 | Outpatient (CLI) | payer MEDICARE ==
[2021-07-03 17:42] LABS: ALT 18 U/L (8-44); AST 16 U/L (13-35); African American GFR (CKD) 76.7 (60.0-200.0); Albumin 4.3 g/dL (3.8-4.9); Albumin/Globulin Ratio 1.87 (1.60-3.17); Alkaline Phosphatase 69 U/L (41-126); BUN/Creat Ratio 19.22 Ratio (12.00-20.00); Blood Urea Nitrogen 17.3 mg/dL (9.0-27.0); Calcium 9.4 mg/dL (8.7-10.3); Carbon Dioxide 24.4 mmol/L (20.0-27.5); Chloride 103 mmol/L (96-109); Chol/HDL Ratio 3.19 Ratio; Globulin 2.3 g/dL (1.6-3.3); Glucose 95 mg/dL (70-110); LDL Cholesterol,Calculated 75.7 mg/dL (0.0-131.0); Non-African American GFR(CKD) 66.2 (60.0-200.0); Sodium 141 mmol/L (135-145); Total Protein 6.6 g/dL (6.2-8.2)
== END | disposition home or self-care (01) ==
LOC: LABWHC1 08:16
PROVIDERS: ATTEND Nurse Practitioner Adult Health
DX: I10 Essential (primary) hypertension (principal); E78.2 Mixed hyperlipidemia
CPT/HCPCS: 36415; 80053; 80061

== ENCOUNTER → 2021-11-22 | Outpatient (CLI) | payer MEDICARE ==
--- NOTE | 2021-11-23 04:17 | MR ---
EXAMINATION TYPE: MR thoracic spine wo/w con DATE OF EXAM: 11/22/2021 COMPARISON: HISTORY: BENIGN NEOPLASM OF VERTEBRAL COLUMN CONTRAST: Standard multiplanar, multisequence MRI departmental protocol images were obtained without contrast a nd with 8 mL intravenous Gadavist gadolinium contrast. MRI scan of the thoracic spine. History vertebral tumor. Comparison 11/22/2019 postop exam FINDINGS: At T2-3 there is posterior rods and screws fusing the thoracic spine. The thoracic vertebrae have jayme rly normal alignment. No compression fracture. There is metal artifact which obscures the detail to s ome extent. No evidence of thoracic spinal cord mass. The visualized brainstem is intact. There is sl ight posterior deviation of the upper thoracic spinal cord at the T2 level probably due to residual e ffects of the anterior mass producing displacement on the old exam of 10/07/2018. No evidence for recu rrent tumor in the thoracic spinal canal. No pathologic enhancement. No evidence of focal bone destruction. No evidence of thoracic paraspinal mass. IMPRESSION: Previous surgery. No sign of recurrent tumor. No thoracic spinal stenosis. No adverse change compared to the old exam.
== END | disposition home or self-care (01) ==
LOC: RADMRIMAIN 07:49
PROVIDERS: ATTEND Neurological Surgery
DX: D16.6 Benign neoplasm of vertebral column (principal)
CPT/HCPCS: 72157; A9585

== ENCOUNTER → 2021-11-22 | Outpatient (CLI) | payer MEDICARE ==
[2021-11-22 14:57] LABS: African American GFR (CKD) 78.5 (60.0-200.0); Blood Urea Nitrogen 13.3 mg/dL (9.0-27.0); Non-African American GFR(CKD) 67.7 (60.0-200.0)
== END | disposition home or self-care (01) ==
LOC: LABWHC1 09:20
DX: D16.6 Benign neoplasm of vertebral column (principal)
CPT/HCPCS: 36415; 82565; 84520

== ENCOUNTER 2022-01-01 07:30 | Day surgery (SDC) | payer MEDICARE ==
[2021-12-31 08:23] VITALS: BMI 31.8
--- NOTE | 2022-01-01 06:27 | P.GSHP ---
History of Present Illness H&P Date: 01/01/22 CHIEF COMPLAINT: Symptomatic anemia HISTORY OF PRESENT ILLNESS: The patient is a 66-year-old female who presents with symptomatic anemia of unclear etiology with Hgb less than 7.0 requiring blood transfusions. Upper and lower endoscopy were offered for further evaluation and management. PAST MEDICAL HISTORY: Please see list. PAST SURGICAL HISTORY: Please see list. MEDICATIONS: Please see list. ALLERGIES: Please see list. SOCIAL HISTORY: No illicit drug use FAMILY HISTORY: No reports of Crohn disease or ulcerative colitis. REVIEW OF ORGAN SYSTEMS: CONSTITUTIONAL: No reports of fevers or chills. GI: Denies any blood in stools or constipation. PHYSICAL EXAM: VITAL SIGNS: Stable GENERAL: Well-developed pleasant in no acute distress. HEENT: No scleral icterus. Extraocular movements grossly intact. Moist buccal mucosa. NECK: Supple without lymphadenopathy. CHEST: Unlabored respirations. Equal bilateral excursions. CARDIOVASCULAR: Regular rate and rhythm. Distal 2+ pulses. ABDOMEN: Soft, nondistended. MUSCULOSKELETAL: No clubbing, cyanosis, or edema. ASSESSMENT: 1. Anemia PLAN: 1. Recommend proceeding with an upper and lower endoscopy Past Medical History Past Medical History: Cancer, Hyperlipidemia, Hypertension Additional Past Medical History / Comment(s): anemia,had blood transfusion 11-28-21, hx breast cancer-dx Jun 2016 received radiation History of Any Multi-Drug Resistant Organisms: None Reported Past Surgical History: Breast Surgery, Hysterectomy Additional Past Surgical History / Comment(s): rt breast biopsy, rt breast lumpectomy, rt cataract,benign tumor removed from back-had fusion to that area at that time Past Anesthesia/Blood Transfusion Reactions: No Reported Reaction Additional Past Anesthesia/Blood Transfusion Reaction / Comment(s): no complications with blood transfusion Smoking Status: Never smoker - Past Family History Mother Family Medical History: Cancer Additional Family Medical History / Comment(s): breast CA x2 Medications and Allergies Home Medications Medication Instructions Recorded Confirmed Type Latanoprost Ophth [Xalatan 0.005%] 1 drops BOTH EYES HS 07/18/16 12/31/21 History Biotin 1,000 mcg PO DAILY 12/31/21 12/31/21 History Cholecalciferol [Vitamin D3 (25 25 mcg PO DAILY 12/31/21 12/31/21 History Mcg = 1000 Iu)] Ezetimibe/Simvastatin [Vytorin 1 each PO HS 12/31/21 12/31/21 History 10-40 mg Tablet] Fish Oil/Dha/Epa [Fish Oil 1,200 1 each PO DAILY 12/31/21 12/31/21 History mg Fish Oil] L.acidoph,Paracasei, B.lactis 1 each PO DAILY 12/31/21 12/31/21 History [Probiotic] Allergies Allergy/AdvReac Type Severity Reaction Status Date / Time Sulfa (Sulfonamide Allergy Rash/Hives Verified 12/31/21 08:10 Antibiotics)
[2022-01-01] MEDS ORDERED: LACTATED RINGERS 1,000 ML IV SCH (07:59)
[2022-01-01 08:10] VITALS: TEMP 98.1
[2022-01-01] MEDS ORDERED: PROPOFOL 10 MG/ML 20 ML VIAL IV ONE (08:39)
[2022-01-01] MEDS ORDERED: LIDOCAINE 2% INJ 20 MG/ML (2 ML VIAL) ONE (08:39)
--- NOTE | 2022-01-01 08:53 | P.PCN ---
Date of Procedure: 01/01/22 Description of Procedure: PREOPERATIVE DIAGNOSIS: Anemia History of blood transfusion POSTOPERATIVE DIAGNOSIS: Incarcerated paraesophageal hiatal hernia Gastroesophageal reflux disease OPERATION: Esophagogastroduodenoscopy with biopsies along antrum, esophagus, duodenum SURGEON: Maday Walton MD ANESTHESIA: MAC. INDICATIONS: The patient is a 66-year-old female who presents with anemia of uncertain origin. Benefits and risks of the procedure were described. Informed consent was obtained. DESCRIPTION: The patient was brought into the endoscopy suite and laid in the left lateral decubitus position. An Olympus gastroscope was passed along the posterior oropharynx down to the distal esophagus where the squamocolumnar junction was encountered at 32 cm from the incisors. The stomach was entered and no bile reflux was found. Additional findings are listed below. Biopsies with cold forceps were obtained of the antrum. The first through third portion of the duodenum was examined. Retroflexion of the scope confirmed Hill grade 4 lower esophageal valve. The squamocolumnar junction demonstrated LA grade B erosive esophagitis. The stomach was desufflated. The patient tolerated the procedure well. FINDINGS: Squamocolumnar junction 32 cm from the incisors. Diaphragmatic hiatus at 38 cm. Hiatal hernia, 6 cm, paraesophageal hernia Hill grade 4 lower esophageal valve. LA grade B erosive esophagitis with biopsies obtained Cold forceps biopsies obtained of duodenum for celiac disease Duodenitis RECOMMENDATIONS: Recommend repair of paraesophageal hiatal hernia due to symptomatic anemia
[2022-01-01] MEDS ORDERED: IV FLUID CONTINUATION 1,000 ML IV ONE (09:11)
--- NOTE | 2022-01-01 09:12 | P.PCN ---
Date of Procedure: 01/01/22 Description of Procedure: PREOPERATIVE DIAGNOSIS: Anemia of unexplained origin History of breast cancer History of colon polyps POSTOPERATIVE DIAGNOSIS: Tubular adenoma ascending colon Sigmoid diverticulosis Internal hemorrhoids, grade 3 External hemorrhoids, grade 4 OPERATION: Colonoscopy to the ileocecal valve and appendiceal orifice, cecum Colonoscopy with hot snare polypectomy SURGEON: Maday Walton MD. ANESTHESIA: MAC. INDICATIONS: The patient is an 66-year-old female who presents with anemia of unexplained origin and history of colon polyp. Last colonoscopy 5 years. Benefits and risks were described and informed consent was obtained. DESCRIPTION OF PROCEDURE: The patient had undergone Sutab prep. The patient had been brought into the operating room and laid in the left lateral decubitus position. After adequate intravenous sedation, the rectum was examined with 2% lidocaine jelly. The prostate was unremarkable. External hemorrhoids were encountered. The rectal tone was within normal limits. No lesions were palpated in the rectal vault. An Olympus colonoscope was advanced until the cecum, ileocecal valve and appendiceal orifice were clearly viewed. The prep was good. Sigmoid diverticulosis was encountered. Colonic polyps were found and removed. No evidence of focal colitis was found. Retroflexion of the scope demonstrated grade 3 internal hemorrhoids without active bleeding or inflammation. The colon was desufflated. The patient had tolerated the procedure well. Withdrawal time was over 6 minutes. FINDINGS: Aronchick preparation quality scale 2 (1-5) Internal hemorrhoids, grade 3 External hemorrhoids, grade 4. No arteriovenous malformations. Sigmoid diverticulosis, few Highly redundant splenic flexure Removal of 1 polyps: - Snare polypectomy of ascending colon, 6 mm tubulovillous adenoma polyp. No focal colitis. RECOMMENDATIONS: Recommend repeat colonoscopy 3 years, 2024 Plan - Discharge Summary Discharge Rx Participant: No New Discharge Prescriptions: Continue Latanoprost Ophth [Xalatan 0.005%] 1 drops BOTH EYES HS Fish Oil/Dha/Epa [Fish Oil 1,200 mg Fish Oil] 1 each PO DAILY Ezetimibe/Simvastatin [Vytorin 10-40 mg Tablet] 1 each PO HS L.acidoph,Paracasei, B.lactis [Probiotic] 1 each PO DAILY Cholecalciferol [Vitamin D3 (25 Mcg = 1000 Iu)] 25 mcg PO DAILY Biotin 1,000 mcg PO DAILY Discharge Medication List Latanoprost Ophth [Xalatan 0.005%] 1 drops BOTH EYES HS 07/18/16 [History] Biotin 1,000 mcg PO DAILY 12/31/21 [History] Cholecalciferol [Vitamin D3 (25 Mcg = 1000 Iu)] 25 mcg PO DAILY 12/31/21 [History] Ezetimibe/Simvastatin [Vytorin 10-40 mg Tablet] 1 each PO HS 12/31/21 [History] Fish Oil/Dha/Epa [Fish Oil 1,200 mg Fish Oil] 1 each PO DAILY 12/31/21 [History] L.acidoph,Paracasei, B.lactis [Probiotic] 1 each PO DAILY 12/31/21 [History] Follow up Appointment(s)/Referral(s): Maday Walton MD [STAFF PHYSICIAN] - 01/21/22 Patient Instructions/Handouts: Hiatal Hernia (DC), Colorectal Polyps (GEN) Activity/Diet/Wound Care/Special Instructions: Repeat colonoscopy 3 years, 2024 Discharge Disposition: HOME SELF-CARE
[2022-01-01 09:40] VITALS: BP 165/88; PULSE 61; RESP 18
== END 2022-01-01 09:54 | disposition home or self-care (01) ==
LOC: ORWHC2ENDO 07:30
PROVIDERS: ATTEND Surgery Plastic and Reconstructive Surgery
DX: D12.2 Benign neoplasm of ascending colon (principal); K57.30 Diverticulosis of large intestine without perforation or abscess without bleeding; K64.3 Fourth degree hemorrhoids; K44.0 Diaphragmatic hernia with obstruction, without gangrene; K29.80 Duodenitis without bleeding; K29.50 Unspecified chronic gastritis without bleeding; K21.00 Gastro-esophageal reflux disease with esophagitis, without bleeding; D50.9 Iron deficiency anemia, unspecified; Z86.010 Personal history of colon polyps; Z85.3 Personal history of malignant neoplasm of breast; I10 Essential (primary) hypertension; E78.5 Hyperlipidemia, unspecified; Z92.3 Personal history of irradiation; Z80.3 Family history of malignant neoplasm of breast; Z79.899 Other long term (current) drug therapy; Z88.2 Allergy status to sulfonamides
CPT/HCPCS: 88305; 45385; 43239; J2704; J2001; 88342

== ENCOUNTER → 2022-02-10 | Outpatient (CLI) | payer MEDICARE ==
--- NOTE | 2022-02-10 10:50 | MM ---
Reason for Exam: Additional evaluation requested from prior study. Last screening mammogram was performed 12 month(s) ago. Patient History: Menarche at age 11. Patient has no children. Right ovary removed at age 48. Hysterectomy at age 48. Postmenopausal. Breast cancer, right, age 61. Hormonal Contraceptives for 15 years from age 19 until age 39. 2017, Lumpectomy on the Right side. 07/22/2016, Malignant Core Biopsy on the right side. 06/26/2016, Malignant Core Biopsy on the right side. 11/17/2000, Benign Excisional Biopsy on the right side. 05/03/2001, Benign Ultrasound-Guided Core Biopsy on the right side. 2016, Radiation Therapy on the right side. Mother had breast cancer, age 60. Prior Study Comparison: 02/02/2017 Bilateral Diagnostic Mammogram, [facility]. 02/03/2018 Bilateral Diagnostic Mammogram, [facility]. 02/04/2019 Bilateral Diagnostic Mammogram, [facility]. 02/07/2020 Bilateral Diagnostic Mammogram, [facility]. 02/07/2021 Bilateral Diagnostic Mammogram, [facility]. 02/07/2021 Right Diagnostic Ultrasound, [facility]. Tissue Density: The breast tissue is heterogeneously dense. This may lower the sensitivity of mammography. Findings: Analyzed By CAD. Postsurgical and posttreatment changes right breast. Underlying 2.3 cm 11:00 right breast seroma and surgical scar remains unchanged. Benign oil cyst calcifications 12:00 left breast. An area of nodular asymmetric density medial left CC view does not persist on additional views. No significant change from prior exams. Overall Assessment: Benign, BI-RAD 2 Management: Screening Mammogram of both breasts in 1 year. 1. Patient should continue monthly self breast exams. 2. A clinical breast exam by your physician is recommended on an annual basis. 3. This exam should not preclude additional follow-up of suspicious palpable abnormalities. Electronically signed and approved by: Min Ball M.D. Radiologist
== END | disposition home or self-care (01) ==
LOC: RADMAMWWP 09:41
PROVIDERS: ATTEND Radiology Radiation Oncology
DX: R92.8 Other abnormal and inconclusive findings on diagnostic imaging of breast (principal); Z78.0 Asymptomatic menopausal state; Z80.3 Family history of malignant neoplasm of breast
CPT/HCPCS: 77066; G0279; 77062

== ENCOUNTER 2022-03-06 08:05 | Day surgery (SDC) | payer MEDICARE ==
--- NOTE | 2022-03-06 07:36 | P.GSHP ---
History of Present Illness H&P Date: 03/06/22 CHIEF COMPLAINT: Anemia HISTORY OF PRESENT ILLNESS: The patient is a 66-year-old female who presents reports gastroesophageal reflux disease and anemia. Upper endoscopy was offered for further evaluation and management. PAST MEDICAL HISTORY: Please see list. PAST SURGICAL HISTORY: Please see list. MEDICATIONS: Please see list. ALLERGIES: Please see list. SOCIAL HISTORY: No illicit drug use FAMILY HISTORY: No reports of Crohn disease or ulcerative colitis. REVIEW OF ORGAN SYSTEMS: CONSTITUTIONAL: No reports of fevers or chills. GI: Denies any blood in stools or constipation. PHYSICAL EXAM: VITAL SIGNS: Stable GENERAL: Well-developed and pleasant in no acute distress. HEENT: No scleral icterus. Extraocular movements grossly intact. Moist buccal mucosa. NECK: Supple without lymphadenopathy. CHEST: Unlabored respirations. Equal bilateral excursions. CARDIOVASCULAR: Regular rate and rhythm. Distal 2+ pulses. ABDOMEN: Soft, nondistended. MUSCULOSKELETAL: No clubbing, cyanosis, or edema. ASSESSMENT: 1. Gastroesophageal reflux disease and anemia PLAN: 1. Recommend proceeding with an upper endoscopy Past Medical History Past Medical History: Cancer, Hyperlipidemia, Hypertension Additional Past Medical History / Comment(s): anemia,had blood transfusion 11-28-21, hx breast cancer-dx Jun 2016 received radiation History of Any Multi-Drug Resistant Organisms: None Reported Past Surgical History: Breast Surgery, Hysterectomy Additional Past Surgical History / Comment(s): rt breast biopsy, rt breast lumpectomy, rt cataract,benign tumor removed from back-had fusion to that area at that time, egd Past Anesthesia/Blood Transfusion Reactions: No Reported Reaction Additional Past Anesthesia/Blood Transfusion Reaction / Comment(s): no complications with blood transfusion Smoking Status: Never smoker - Past Family History Mother Family Medical History: Cancer Additional Family Medical History / Comment(s): breast CA x2 Medications and Allergies Home Medications Medication Instructions Recorded Confirmed Type Latanoprost Ophth [Xalatan 0.005%] 1 drops BOTH EYES HS 07/18/16 03/04/22 History Biotin 1,000 mcg PO DAILY 12/31/21 03/04/22 History Cholecalciferol [Vitamin D3 (25 25 mcg PO DAILY 12/31/21 03/04/22 History Mcg = 1000 Iu)] Ezetimibe/Simvastatin [Vytorin 1 each PO HS 12/31/21 03/04/22 History 10-40 mg Tablet] Fish Oil/Dha/Epa [Fish Oil 1,200 1 each PO DAILY 12/31/21 03/04/22 History mg Fish Oil] L.acidoph,Paracasei, B.lactis 1 each PO DAILY 12/31/21 03/04/22 History [Probiotic] Allergies Allergy/AdvReac Type Severity Reaction Status Date / Time Sulfa (Sulfonamide Allergy Rash/Hives Verified 03/04/22 11:24 Antibiotics)
[~2022-03-06 08:05] MED LIST changes: -ALPRAZolam 0.25 MG TAB PO PRN; -DEXAMETHASONE SOD PHOSPHATE 10 MG/ML 1 ML VIAL IV ONE; -HEPARIN SODIUM,PORCINE 5,000 UNIT/ML 1 ML VIAL SQ ONE; -HYDROmorphone 1 MG/ML 1 ML SYRINGE IVP PRN; -LIDOCAINE 1% 20 ML VIAL (10MG/ML) FOR IV START INTRADERMA PRN; -MIDAZOLAM 2 MG/2 ML VIAL IV PRN; -ONDANSETRON 4 MG/2 ML VIAL IVP ONE; -Pre Op ABX Message 1 EACH MISC MISCELLANE ONE; -SCOPOLAMINE 1.5MG/72HR PATCH TRANSDERM ONE
[2022-03-06 08:25] VITALS: TEMP 98
[2022-03-06] MEDS ORDERED: LIDOCAINE 2% INJ 20 MG/ML (2 ML VIAL) ONE (08:53)
[2022-03-06] MEDS ORDERED: PROPOFOL 10 MG/ML 20 ML VIAL IV ONE (08:53)
[2022-03-06 09:47] LABS: Anisocytosis Moderate; Basophils % (A) 1 %; Eosinophils # (A) 0.1 k/uL (0-0.7); Eosinophils % (A) 3 %; HCT 41.8 % (34.0-46.0); HGB 13.9 gm/dL (11.4-16.0); Hypochromasia Slight; Lymphocytes # (A) 1.5 k/uL (1.0-4.8); Lymphocytes % (A) 32 %; MCH 27.8 pg (25.0-35.0); MCHC 33.2 g/dL (31.0-37.0); MCV 83.7 fL (80.0-100.0); Mean Platelet Volume 8.3; Microcytosis Moderate; Monocytes # (A) 0.3 k/uL (0-1.0); Monocytes % (A) 6 %; Neutrophils # (A) 2.5 k/uL (1.3-7.7); Neutrophils % (A) 56 %; Platelet Count 165 k/uL (150-450); RBC 4.99 m/uL (3.80-5.40); RDW 21.5 % (11.5-15.5); WBC 4.5 k/uL (3.8-10.6)
--- NOTE | 2022-03-06 09:52 | XR ---
EXAMINATION TYPE: XR chest 1V portable DATE OF EXAM: 03/06/2022 COMPARISON: NONE HISTORY: Low oxygen saturation TECHNIQUE: Single frontal view of the chest is obtained. FINDINGS: Heart size enlarged as postsurgical change involving the vertebral count. Arthropathy of t he shoulders. There is no pleural effusion or pneumothorax. No overt failure. Scoliosis and degenerat yrn change of the spine. IMPRESSION: Basilar subsegmental atelectasis favored over pneumonia
[2022-03-06 09:56] VITALS: BP 159/79; PULSE 72; RESP 16
[2022-03-06 09:56] LABS: ALT 29 U/L (4-34); AST 31 U/L (14-36); African American GFR (CKD) >90 (>60 ml/min/1.73 sqM); Albumin 4.3 g/dL (3.5-5.0); Alkaline Phosphatase 79 U/L (38-126); Anion Gap 12 mmol/L; Blood Urea Nitrogen 16 mg/dL (7-17); Calcium 9.3 mg/dL (8.4-10.2); Carbon Dioxide 26 mmol/L (22-30); Chloride 103 mmol/L (98-107); Glucose 98 mg/dL (74-99); Non-African American GFR(CKD) 80 (>60 ml/min/1.73 sqM); Potassium 3.4 mmol/L (3.5-5.1); Sodium 141 mmol/L (137-145); Total Bilirubin 0.5 mg/dL (0.2-1.3); Total Protein 6.6 g/dL (6.3-8.2)
--- NOTE | 2022-03-08 17:12 | P.PCN ---
Date of Procedure: 03/06/22 Description of Procedure: PREOPERATIVE DIAGNOSIS: Gastroesophageal reflux disease. H. pylori gastritis POSTOPERATIVE DIAGNOSIS: Gastroesophageal reflux disease. Gastritis. Diaphragmatic hiatal hernia OPERATION: Esophagogastroduodenoscopy with antrum. SURGEON: Maday Walton MD ANESTHESIA: MAC. INDICATIONS: The patient is a 66-year-old female who presents with reflux disease. Benefits and risks of the procedure were described. Informed consent was obtained. DESCRIPTION: The patient was brought into the endoscopy suite and laid in the left lateral decubitus position. An Olympus gastroscope was passed along the posterior oropharynx down to the distal esophagus where the squamocolumnar junction was encountered at 32 cm from the incisors. The stomach was entered and no bile reflux was found. Additional findings are listed below. Biopsies with cold forceps were obtained of the antrum. The first through third portion of the duodenum was examined. Retroflexion of the scope confirmed Hill grade 4 lower esophageal valve. The squamocolumnar junction demonstrated LA grade B erosive esophagitis. The stomach was desufflated. The patient tolerated the procedure well. FINDINGS: Squamocolumnar junction 32 cm from the incisors. Diaphragmatic hiatus at 38 cm. Hiatal hernia, 6 cm, paraesophageal hernia Hill grade 4 lower esophageal valve. LA grade B erosive esophagitis with biopsies obtained Cold forceps biopsies obtained of the stomach RECOMMENDATIONS: Upper endoscopy as needed. Plan - Discharge Summary Discharge Rx Participant: No New Discharge Prescriptions: Continue Latanoprost Ophth [Xalatan 0.005%] 1 drops BOTH EYES HS Fish Oil/Dha/Epa [Fish Oil 1,200 mg Fish Oil] 1 each PO DAILY Ezetimibe/Simvastatin [Vytorin 10-40 mg Tablet] 1 each PO HS L.acidoph,Paracasei, B.lactis [Probiotic] 1 each PO DAILY Cholecalciferol [Vitamin D3 (25 Mcg = 1000 Iu)] 25 mcg PO DAILY Biotin 1,000 mcg PO DAILY Discharge Medication List Latanoprost Ophth [Xalatan 0.005%] 1 drops BOTH EYES HS 07/18/16 [History] Biotin 1,000 mcg PO DAILY 12/31/21 [History] Cholecalciferol [Vitamin D3 (25 Mcg = 1000 Iu)] 25 mcg PO DAILY 12/31/21 [History] Ezetimibe/Simvastatin [Vytorin 10-40 mg Tablet] 1 each PO HS 12/31/21 [History] Fish Oil/Dha/Epa [Fish Oil 1,200 mg Fish Oil] 1 each PO DAILY 12/31/21 [History] L.acidoph,Paracasei, B.lactis [Probiotic] 1 each PO DAILY 12/31/21 [History] Follow up Appointment(s)/Referral(s): Maday Walton MD [STAFF PHYSICIAN] - 03/18/22 Patient Instructions/Handouts: *Surgery [facility] - (Anesthesia) Endoscopy Discharge Instructions, Hiatal Hernia (DC) Discharge Disposition: HOME SELF-CARE
== END 2022-03-06 10:10 | disposition home or self-care (01) ==
LOC: ORWHC2ENDO 08:05
PROVIDERS: ATTEND Surgery Plastic and Reconstructive Surgery
DX: K29.50 Unspecified chronic gastritis without bleeding (principal); K25.4 Chronic or unspecified gastric ulcer with hemorrhage; K22.4 Dyskinesia of esophagus; K44.9 Diaphragmatic hernia without obstruction or gangrene; I10 Essential (primary) hypertension; D64.9 Anemia, unspecified; E78.5 Hyperlipidemia, unspecified; Z85.3 Personal history of malignant neoplasm of breast; Z79.890 Hormone replacement therapy; Z79.899 Other long term (current) drug therapy; Z88.2 Allergy status to sulfonamides; K21.00 Gastro-esophageal reflux disease with esophagitis, without bleeding; B96.81 Helicobacter pylori [H. pylori] as the cause of diseases classified elsewhere
CPT/HCPCS: 88305; 80053; 85025; 71045; 43239; J2704; J2001

== ENCOUNTER → 2022-05-08 | Outpatient (CLI) | payer MEDICARE ==
[2022-05-09 00:23] LABS: ALT 24 U/L (8-44); AST 21 U/L (13-35); African American GFR (CKD) 80.8 (60.0-200.0); Albumin 4.6 g/dL (3.8-4.9); Albumin/Globulin Ratio 2.04 (1.60-3.17); Alkaline Phosphatase 82 U/L (41-126); BUN/Creat Ratio 17.75 Ratio (12.00-20.00); Blood Urea Nitrogen 15.3 mg/dL (9.0-27.0); Carbon Dioxide 29.4 mmol/L (20.0-27.5); Chloride 102 mmol/L (96-109); Globulin 2.2 g/dL (1.6-3.3); Glucose 98 mg/dL (70-110); LDL Cholesterol,Calculated 88.5 mg/dL (0.0-131.0); Non-African American GFR(CKD) 69.7 (60.0-200.0); Potassium 3.8 mmol/L (3.5-5.5); Sodium 143 mmol/L (135-145); Total Protein 6.8 g/dL (6.2-8.2)
== END | disposition home or self-care (01) ==
LOC: LABWHC1 10:30
PROVIDERS: ATTEND Internal Medicine Interventional Cardiology
DX: E78.2 Mixed hyperlipidemia (principal)
CPT/HCPCS: 36415; 80053; 80061

== ENCOUNTER → 2022-11-12 | Outpatient (CLI) | payer MEDICARE ==
[2022-11-12 10:00] LABS: ALT 27 U/L (4-34); AST 29 U/L (14-36)
[2022-11-12 22:50] LABS: Chol/HDL Ratio 3.01 Ratio; LDL Cholesterol,Calculated 100.7 mg/dL (0.0-131.0)
== END | disposition home or self-care (01) ==
LOC: LABWHC1 07:43
PROVIDERS: ATTEND Internal Medicine Interventional Cardiology
DX: E78.2 Mixed hyperlipidemia (principal)
CPT/HCPCS: 36415; 80061; 84450; 84460

== ENCOUNTER → 2023-02-12 | Outpatient (CLI) | payer MEDICARE ==
--- NOTE | 2023-02-13 08:45 | MM ---
Reason for Exam: Screening (asymptomatic). Last screening mammogram was performed 12 month(s) ago. Patient History: Menarche at age 11. Patient has no children. Right ovary removed at age 48. Hysterectomy at age 48. Postmenopausal. Breast cancer, right, age 61. Hormonal Contraceptives for 15 years from age 19 until age 39. 2017, Lumpectomy on the Right side. 07/22/2016, Malignant Core Biopsy on the right side. 06/26/2016, Malignant Core Biopsy on the right side. 11/17/2000, Benign Excisional Biopsy on the right side. 05/03/2001, Benign Ultrasound-Guided Core Biopsy on the right side. 2016, Radiation Therapy on the right side. Mother had breast cancer, age 60. Prior Study Comparison: 02/07/2020 Bilateral Diagnostic Mammogram, [facility]. 02/07/2021 Bilateral Diagnostic Mammogram, [facility]. 02/10/2022 Bilateral MG 3D diag mammo w/cad JACKIE, [facility]. Tissue Density: The breast tissue is heterogeneously dense. This may lower the sensitivity of mammography. Findings: Analyzed By CAD. Postsurgical posttreatment changes right breast. There is a 2.3 cm nodule which is persistent and in the upper central right breast. There are benign-appearing calcifications. Overall Assessment: Incomplete: need additional imaging evaluation, BI-RAD 0 Management: Diagnostic Breast Ultrasound of the right breast. . Patient should continue monthly self-breast exams. A clinical breast exam by your physician is recommended on an annual basis. This exam should not preclude additional follow-up of suspicious palpable abnormalities. Note on Soni scores and lifetime risk: 1. A Soni score greater than 3% is considered moderate risk. If this is the case, consider specialist referral to assess eligibility for a risk reducing agent. 2. If overall lifetime risk for the development of breast cancer is 20% or higher, the patient may qualify for future screening with alternating mammogram and breast MRI. Electronically signed and approved by: Shayne Menendez M.D. Radiologis
== END | disposition home or self-care (01) ==
LOC: RADMAMWWP 11:07
PROVIDERS: ATTEND Radiology Radiation Oncology
DX: Z12.31 Encounter for screening mammogram for malignant neoplasm of breast (principal); Z78.0 Asymptomatic menopausal state; Z85.3 Personal history of malignant neoplasm of breast; Z80.3 Family history of malignant neoplasm of breast; Z92.3 Personal history of irradiation
CPT/HCPCS: 77063; 77067

== ENCOUNTER → 2023-06-10 | Outpatient (CLI) | payer MEDICARE ==
[2023-06-10 15:19] LABS: ALT 27 U/L (8-44); AST 19 U/L (13-35); Albumin 4.6 g/dL (3.8-4.9); Albumin/Globulin Ratio 1.77 Ratio (1.60-3.17); Alkaline Phosphatase 75 U/L (41-126); BUN/Creat Ratio 16.89 Ratio (12.00-20.00); Blood Urea Nitrogen 15.2 mg/dL (9.0-27.0); Calcium 9.8 mg/dL (8.7-10.3); Carbon Dioxide 28.3 mmol/L (21.6-31.8); Chloride 101 mmol/L (96-109); Chol/HDL Ratio 3.44 Ratio; Globulin 2.6 g/dL (1.6-3.3); Glucose 101 mg/dL (70-110); LDL Cholesterol,Calculated 88.7 mg/dL (0.0-131.0); Potassium 3.6 mmol/L (3.5-5.5); Sodium 143 mmol/L (135-145); Total Bilirubin 0.5 mg/dL (0.3-1.2); Total Protein 7.2 g/dL (6.2-8.2)
== END | disposition home or self-care (01) ==
LOC: LABWHC1 08:57
PROVIDERS: ATTEND Internal Medicine Interventional Cardiology
DX: I10 Essential (primary) hypertension (principal); E78.2 Mixed hyperlipidemia
CPT/HCPCS: 36415; 80053; 80061

== ENCOUNTER → 2024-02-15 | Outpatient (CLI) | payer MEDICARE ==
--- NOTE | 2024-02-21 21:58 | MM ---
Reason for Exam: Screening (asymptomatic). Last screening mammogram was performed 12 month(s) ago. Patient History: Menarche at age 11. Patient has no children. Right ovary removed at age 48. Hysterectomy at age 48. Postmenopausal. Breast cancer, right, age 61. Hormonal Contraceptives for 15 years from age 19 until age 39. 2017, Lumpectomy on the Right side. 07/22/2016, Malignant Core Biopsy on the right side. 06/26/2016, Malignant Core Biopsy on the right side. 11/17/2000, Benign Excisional Biopsy on the right side. 05/03/2001, Benign Ultrasound-Guided Core Biopsy on the right side. 2016, Radiation Therapy on the right side. Mother had breast cancer, age 60. Prior Study Comparison: 02/07/2021 Bilateral Diagnostic Mammogram, [facility]. 02/10/2022 Bilateral MG 3D diag mammo w/cad JACKIE, [facility]. 02/12/2023 Bilateral MG 3D screening mammo w/cad, [facility]. Tissue Density: The breasts are heterogeneously dense, which may obscure small masses. Findings: Analyzed By CAD. The pattern is symmetrical. Pattern appears stable. Benign round calcifications are within the left breast. There is a stable 2.2 cm nodule within the right breast. No suspicious groups of microcalcifications, spiculated or lobular masses, architectural distortion or other secondary signs of malignancy are mammographically apparent. Overall Assessment: Benign, BI-RAD 2 Management: Screening Mammogram of both breasts in 1 year. A negative mammogram report should not preclude additional follow up of suspicious palpable abnormalities. Patient should continue monthly self breast exam. A clinical breast exam by your physician is recommended on an annual basis and results should be correlated with mammographic findings. Note on Soni scores and lifetime risk: 1. A Soni score greater than 3% is considered moderate risk. If this is the case, consider specialist referral to assess eligibility for a risk reducing agent. 2. If overall lifetime risk for the development of breast cancer is 20% or higher, the patient may qualify for future screening with alternating mammogram and breast MRI. [facility], , 02/21/2024 9:55 PM. Electronically signed and approved by: Elvis Dawkins D.O. Radiologis
== END | disposition home or self-care (01) ==
LOC: RADMAMWWP 09:37
PROVIDERS: ATTEND Radiology Radiation Oncology
DX: Z12.31 Encounter for screening mammogram for malignant neoplasm of breast
CPT/HCPCS: 77063; 77067

== ENCOUNTER → 2024-03-10 | Outpatient (CLI) | payer MEDICARE ==
[2024-03-10 15:29] LABS: ALT 30 U/L (8-44); AST 24 U/L (13-35); Chol/HDL Ratio 3.34 Ratio; LDL Cholesterol,Calculated 89.7 mg/dL (0.0-131.0)
== END | disposition home or self-care (01) ==
LOC: LABWHC1 09:00
PROVIDERS: ATTEND Nurse Practitioner Adult Health
DX: E78.2 Mixed hyperlipidemia (principal)
CPT/HCPCS: 36415; 80061; 84450; 84460

== ENCOUNTER → 2024-12-17 | Outpatient (CLI) | payer MEDICARE ==
[2024-12-17 15:05] LABS: BUN/Creat Ratio 18.11 Ratio (12.00-20.00); Blood Urea Nitrogen 16.3 mg/dL (9.0-27.0); Cholesterol 177.00 mg/dL (0.00-200.00); Glucose 107 mg/dL (70-110); HDL Cholesterol 49.00 mg/dL (40.00-60.00); LDL Cholesterol,Calculated 93.4 mg/dL (0.0-131.0); Triglycerides 173.00 mg/dL (0.00-149.00); VLDL Calculation 34.60 mg/dL (5.00-40.00)
[2024-12-17 15:06] LABS: ALT 28 U/L (8-44); AST 23 U/L (13-35); Albumin 4.6 g/dL (3.8-4.9); Albumin/Globulin Ratio 2.09 Ratio (1.60-3.17); Alkaline Phosphatase 69 U/L (41-126); Anion Gap 14.10 mmol/L (4.00-12.00); Calcium 9.7 mg/dL (8.7-10.3); Carbon Dioxide 24.9 mmol/L (21.6-31.8); Chloride 102 mmol/L (96-109); Globulin 2.2 g/dL (1.6-3.3); Potassium 3.9 mmol/L (3.5-5.5); Sodium 141 mmol/L (135-145); Total Protein 6.8 g/dL (6.2-8.2)
== END | disposition home or self-care (01) ==
LOC: LABWHC1 08:12
PROVIDERS: ATTEND Internal Medicine Interventional Cardiology
DX: E78.2 Mixed hyperlipidemia (principal)
CPT/HCPCS: 36415; 80053; 80061

== ENCOUNTER → 2024-12-20 | Outpatient (CLI) | payer MEDICARE ==
--- NOTE | 2024-12-20 10:32 | MR ---
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 COMPARISON: MR thoracic spine 11/22/2021, 11/22/2019. TECHNIQUE: Multi planar, multi sequence imaging was performed utilizing: T1-weighted, T2-weighted, an d turbo inversion recovery imaging of the thoracic spine. The patient was given 7 mL of Gadobutrol in travenously. FINDINGS: Redemonstration of postsurgical changes with posterior pedicular screws and rods at T2-T3. This creat es susceptibility artifact which limits evaluation. The thoracic vertebral bodies have preserved heig hts. Dextrocurvature of the lower thoracolumbar spine. No spondylolisthesis. The osseous structure seth ve normal signal intensity. No thoracic spinal cord lesion identified. No evidence for recurrent tumo r in the thoracic spinal canal. No pathologic enhancement. Mild multilevel degenerative disc disease. There is no evidence of extradural defects or central spin al canal narrowing at any thoracic vertebral body level. Intervertebral discs demonstrate normal sig nal intensity. Partial visualization of right renal T2 hyperintense thin-walled cyst again. Stable right lower lobe 6 mm pulmonary nodule. IMPRESSION: Redemonstration of postsurgical changes from infection medullary lesion at T2-T3 excision. No evidenc e for recurrent or residual mass. No pathologic enhancement. No new lesions identified. [facility], , 12/20/2024 10:30 AM
== END | disposition home or self-care (01) ==
LOC: RADMRIMAIN 08:44
PROVIDERS: ATTEND Neurological Surgery
DX: D16.6 Benign neoplasm of vertebral column (principal)
CPT/HCPCS: 72157; A9585